=== PATIENT | male | born 2005 | race Caucasian/White ===

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

== ENCOUNTER → 2024-08-12 | Outpatient (REF) | payer OTHER ==
[2024-08-12 17:35] LABS: PERCENT SATURATION 29.2 % (19.7-50.0)
[2024-08-12 17:38] LABS: FERRITIN 79.1 NG/ML (10.5-307.3)
== END ==
LOC: M LAB REF 16:40
PROVIDERS: ATTEND Internal Medicine
DX: R53.83 Other fatigue (principal)